=== PATIENT | male | born 1990 | race Caucasian/White ===

== ENCOUNTER 2025-06-25 18:02 | Emergency (ER) | payer OTHER, SELFPAY ==
[2025-06-25] VITALS (11 sets, daily range): BP systolic 155–172; BP diastolic 86–103; PULSE 69–98; RESP 11–19; TEMP 36.7–36.8; O2SAT 96–99; BMI 33.0
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
[2025-06-25 18:09] LABS: POC Glucose,Bedside 108 gm/dL (70-110)
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
--- OUTSIDE RECORDS SUMMARY | 2025-06-25 18:14 | XMS_ITS | Clinical Summary ---
Author Organization [facility] Address [address] [place] [address] Care Team Providers Care Fire Range Technician Name Role Phone Provider, No Known Primary Care Provider Unavail able Allergies No known active allergies Social History Tobacco Use Types Packs/Day Years Used Date Smoking Tobacco: Never Assessed Abuse Screen Answer Date Recorded Unsafe at Home or Work/School Not on file Feels Threatened by Someone? Not on file 06/2023 Does Anyone Keep You from Co ntacting Others or Doint Things Outside the Home? Not on file 05/26/2023 Physical Sign of Abuse Present Not on file 1 Housing Stability Answer Date Recorded Current Living Arrangements Not on file 05/16 Potentially Unsafe Housing Conditions Not on dl e 05/26/2023 Family and Community Support Answer Cameron e Recorded Help with Day-to-Day Activities Not on file 05/26/2023 Lonely or Isolated Not on file 05/26/2023 Employment Answer Date Recorded Do you want help finding or keeping work or a meaghan b? Not on file 05/26/2023 Disabilities Answer Date Recorded Concentrating, Remembering, or Making Decisions Difficulty Not on file 05/26/2023 Doing Errands Independently Difficulty Not on fi le 05/26/2023 Education Answer Date Recorded Help with school or training? Not on file Preferred Language Not on file 05/26/2023 Sex and Gender Information Value Date Recorded Sex Assigned at Not on file Legal Sex Male 7:28 AM EDT Gender Identity Not on file Sexual Orientation Not on file Last Filed Vital Signs Vital Sign Reading Time Taken Comments Blood Pressure 142/82 03/05/2020 8:46 AM EDT Pulse 66 03/05/2020 8:45 AM EDT Temperature 37 C (98.6 F) 03/05/2020 8:45 AM EDT Respiratory Rate 16 03/05/2020 8:45 AM EDT Oxygen Saturation 99% 03/05/2020 8:45 AM EDT Inhaled Oxygen Concentration - - Weight 104 kg (230 lb) 03/05/2020 8:45 AM EDT Height 180.3 cm (5' 11 ) 03/05/2020 8:45 AM EDT Body Mass Index 32.08 03/05/2020 8:45 AM EDT Plan of Treatment Health Maintenance Due Date Last Done Comments ANNUAL PHYSICAL 1992 HEPATITIS C SCREENING 1992 TDAP/TD VACCINES (1 - Tdap) 2011 INFLUENZA VACCINE 03/16/2025 Pneumococcal Vaccine 0-49 Aged Out No longer eligible based on patient's age to complete this topic Insurance [employer] [place]ICA[place] Care Teams Fire Range Technician Relationship Specialty Start Date End Date Provider, No Known [facility] [place] [address] PCP - General 03/05/20
[2025-06-25 18:17] LABS: Hematocrit 47.8 % (42.0-52.0); Hemoglobin 16.7 g/dL (14.1-18.0); Immature Granulocytes % 0.4 %; Mean Corpuscular HGB Conc 34.9 g/dL (31.8-35.4); Mean Corpuscular Hemoglobin 29.2 pg (27.0-31.2); Mean Corpuscular Volume 83.6 fl (80-94); Nucleated Red Blood Cells % 0 %; Platelet Count 201 K/mm3 (142-424); Red Blood Count 5.72 M/mm3 (4.60-6.20); Red Cell Distribution Width-SD 35.6 fL; White Blood Count 10.7 K/mm3 (4.8-10.8)
--- NOTE | 2025-06-25 18:27 | ECG_ITS ---
APPROVED REPORT Exam: Resting ECG HR:80 bpm ECG Measurements Heart Rate 80 AXES CO 174 P 60 QRSd 106 QRS 92 QT 347 T 50 QTc 382 Conclusion SINUS RHYTHM BORDERLINE RIGHT AXIS DEVIATION [QRS AXIS > 90] BORDERLINE ECG UNCONFIRMED REPORT Electronically signed by : ROSANNE LATHAM, 06/26/2025 05:22:05
[2025-06-25 18:36] LABS: Alanine Aminotransferase 57 U/L (12-78); Albumin Level 5.7 g/dl (3.5-5.0); Albumin/Globulin Ratio 1.5 (1.1-1.8); Alkaline Phosphatase 74 U/L (38-126); Anion Gap 15.7 mEq/L (5-15); Aspartate Amino Transferase 76 U/L (17-59); Bilirubin,Total 2.0 mg/dl (0.2-1.3); Blood Urea Nitrogen 17 mg/dl (9-20); Calcium 9.7 mg/dl (8.4-10.2); Carbon Dioxide 25 mmol/L (22.0-30.0); Chloride 100 mmol/L (98-107); Creatinine Clearance Estimated 141 mL/min (50-200); Creatinine,Serum 1.10 mg/dl (0.66-1.25); Estimated Glomerular Filt Rate 77 ml/min (>60); GFR (African American) 93 ML/MIN (>60); Globulin 3.7 g/dL (1.3-3.2); Glucose 101 mg/dl (74-100); Lipase 70 U/L (23-300); Magnesium 1.8 mg/dl (1.6-2.3); Potassium 5.7 mmoL/L (3.5-5.1); Sodium 135 mmol/L (136-145); Total Protein,Serum 9.4 g/dl (6.3-8.2)
[2025-06-25 18:40] LABS: Alanine Aminotransferase 57 U/L (12-78); Albumin Level 5.6 g/dl (3.5-5.0); Albumin/Globulin Ratio 1.5 (1.1-1.8); Alkaline Phosphatase 78 U/L (38-126); Anion Gap 14.7 mEq/L (5-15); Aspartate Amino Transferase 74 U/L (17-59); Bilirubin,Total 2.0 mg/dl (0.2-1.3); Blood Urea Nitrogen 17 mg/dl (9-20); Calcium 9.4 mg/dl (8.4-10.2); Carbon Dioxide 24 mmol/L (22.0-30.0); Chloride 101 mmol/L (98-107); Creatinine Clearance Estimated 141 mL/min (50-200); Creatinine,Serum 1.10 mg/dl (0.66-1.25); Estimated Glomerular Filt Rate 77 ml/min (>60); GFR (African American) 93 ML/MIN (>60); Globulin 3.7 g/dL (1.3-3.2); Glucose 100 mg/dl (74-100); Potassium 5.7 mmoL/L (3.5-5.1); Sodium 134 mmol/L (136-145); Total Protein,Serum 9.3 g/dl (6.3-8.2)
[2025-06-25 18:41] LABS: Activated Partial Thrombo Time 24.5 seconds (22.8-30.6); INR 0.95 (0.9-1.1); Prothrombin Time 10.6 seconds (10.1-12.5)
[2025-06-25 18:47] LABS: Troponin I 0.02 ng/ml (0.00-0.034)
--- NOTE | 2025-06-25 19:15 | PC.NURSE ---
Report received from Salma HUFF Pt in CT scan
[2025-06-25] MEDS: SODIUM CHLORIDE 0.9% 10ML SYR (RAD ONLY) 10 ML IV (19:16)
[2025-06-25] MEDS: IOPAMIDOL-370 (76%);100ML BOTTLE 160 ML IV (19:16)
[2025-06-25] MEDS: 0.9 % SODIUM CHLORIDE 50 ML VIAL 100 ML IV (19:16)
[2025-06-25] MEDS: ORPHENADRINE CITRATE 60MG/2ML VIAL 60 MG IV (19:26)
[2025-06-25] MEDS: ACETAMINOPHEN 1,000MG/100ML VIAL 1000 MG IV (19:26)
[2025-06-25] MEDS: LACTATED RINGERS 1000ML 1,000 ML 999 ML IV (19:26)
[2025-06-25] MEDS: TET/DIPHTH/PERT-ADULT 0.5ML SYRINGE 0.5 ML IM (19:27)
--- NOTE | 2025-06-25 19:37 | PC.NURSE ---
Pt awake alert and oriented Skin pink warm and dry Resp full and easy Speech clear and appropriate. Family at bedside IV infusing without difficulty
[2025-06-25 20:48] LABS: Microscopic, Urine URINE MICROSCOPIC (MICROSCOPIC)
[2025-06-25 20:49] LABS: Potassium 3.8 mmoL/L (3.5-5.1)
[2025-06-25 20:52] LABS: Bilirubin,Urine Negative (Negative); Color,Urine YELLOW (Yellow); Glucose,Urine (UA) Negative (Negative); Ketones,Urine Negative (Negative); Leukocyte Esterase,Urine Negative (Negative); PH,Urine 5.5 (5.0-8.5); Protein,Urine Negative (Negative); Specific Gravity, Urine <= 1.005 (1.005-1.030); Urobilinogen,Urine 0.2 EU/dl (0.2)
[2025-06-25 22:09] LABS: Bacteria,Urine Trace /lpf; RBC,Urine 20-50 #/hpf (0-3); Squamous Epithelial Cell,Urine Occasional #/hpf (0-5)
== END 2025-06-25 21:21 | disposition home or self-care (01) ==
PROVIDERS: Nurse Practitioner; Emergency Provider Student in an Organized Health Care Education/Training Program; PCP Internal Medicine Adolescent Medicine
DX: S01.01XA Laceration without foreign body of scalp, initial encounter (principal); S13.4XXA Sprain of ligaments of cervical spine, initial encounter; V49.40XA Driver injured in collision with unspecified motor vehicles in traffic accident, initial encounter; E87.5 Hyperkalemia
CPT/HCPCS: 12002; 70450; 70496; 70498; 71045; 71275; 72125; 72128; 72131; 72170; 72192; 74174; 80053; 81001; 82962; 83690; 83735; 84132; 84484; 85025; 85610; 85730; 90471; 90715; 93005; 96361; 96374; 96375; 99285; 99291; G0390; J0131; J2360; J7120; Q9967